=== PATIENT | female | born 1995 | race Caucasian/White ===

== ENCOUNTER 2018-08-03 22:35 | Emergency (ER) | payer SELFPAY ==
[~2018-08-03] VITALS: Ht 154.9 cm; Wt 68.2 kg
[2018-08-03 22:40] VITALS: BP 132/76; Ht 154.9 cm; Wt 68.2 kg
[2018-08-03 23:07] LABS: HCG URINE NEGATIVE (NEGATIVE)
== END 2018-08-03 23:50 | disposition home or self-care (01) ==
LOC: D.ER 22:35
PROVIDERS: Family Medicine
DX: N91.0 Primary amenorrhea (principal); F17.200 Nicotine dependence, unspecified, uncomplicated

== ENCOUNTER 2019-04-23 16:34 | Emergency (ER) | payer MEDICAID ==
[~2019-04-23] VITALS: Ht 154.9 cm; Wt 72.7 kg
[2019-04-23 16:36] VITALS: Ht 154.9 cm; Wt 72.7 kg
[2019-04-23 17:02] LABS: BASOPHILS 0.3 % (0-2); EOSINOPHILS 0.3 % (0-7); HEMATOCRIT 41.2 % (36.0-48.0); HEMOGLOBIN 13.7 g/dL (12-16); IMMATURE GRANULOCYTES 0.2 % (0-5); LYMPHOCYTES 8.4 % (15-50); MCH 31.4 pg (26.0-34.0); MCHC 33.3 g/dL (31.0-37.0); MCV 94.3 fL (80.0-100.0); MEAN PLATELET VOLUME 10.7 fL (7.4-10.4); MONOCYTES 5.7 % (2-11); NEUTROPHILS 85.1 % (40-80); PLATELET COUNT 234 10x3/uL (130-400); RBC 4.37 10x6/uL (4.00-5.40); RDW 12.4 % (11.5-14.5)
[2019-04-23 17:11] LABS: UDS - AMPHET NEGATIVE QUAL (NEGATIVE); UDS - BARB NEGATIVE QUAL (NEGATIVE); UDS - BENZO NEGATIVE QUAL (NEGATIVE); UDS - COCAINE NEGATIVE QUAL (NEGATIVE); UDS - OPIATE NEGATIVE QUAL (NEGATIVE); UDS - PCP NEGATIVE QUAL (NEGATIVE); UDS - THC NEGATIVE QUAL (NEGATIVE)
[2019-04-23 17:15] LABS: CALC OSMOLALITY 280 mosm/kg (275-300); CALCIUM 8.4 mg/dL (8.5-10.1); CARBON DIOXIDE 25.2 mmol/L (21.0-32.0); CHLORIDE - SERUM 106 mmol/L (98-107); CREATININE - SERUM 0.8 mg/dL (0.6-1.3); GLUCOSE 109 mg/dL (74-106); POTASSIUM - SERUM 3.7 mmol/L (3.5-5.1); SODIUM 141 mmol/L (136-145); UREA NITROGEN 11 mg/dL (7-18); eGFR NON AFRICAN AMERICAN > 90 mL/min (90-120)
[2019-04-23 17:19] LABS: ALKALINE PHOSPHATASE 61 U/L (46-116); ALT (SGPT) 11 U/L (10-68); BILIRUBIN - TOTAL 0.34 mg/dL (0.2-1.3); PROTEIN - SERUM 6.4 g/dL (6.4-8.2)
[2019-04-23 17:24] LABS: APTT 26.6 SECONDS (22.8-39.4); INR 1.02 (0.85-1.17); PROTIME 12.9 SECONDS (11.6-15.0)
[2019-04-23 17:27] LABS: APPEARANCE CLEAR (CLEAR); BILIRUBIN NEGATIVE (NEGATIVE); COLOR YELLOW (YELLOW); GLUCOSE NEGATIVE (NEGATIVE); KETONE LARGE mg/dL (NEGATIVE); NITRITE POSITIVE (NEGATIVE); PROTEIN TRACE mg/dL (NEGATIVE); SPECIFIC GRAVITY 1.025 (1.005-1.020); UROBILINOGEN NORMAL (NORMAL)
[2019-04-23 17:28] LABS: EPITHELIAL CELLS 0-5 /hpf (0-5); RED CELLS - URINE OCC /hpf (0-5); WHITE CELLS - URINE 0-5 /hpf (NEGATIVE)
[2019-04-23 17:29] LABS: BACTERIA MANY /hpf (NEGATIVE)
[2019-04-23 17:41] LABS: HCG URINE NEGATIVE (NEGATIVE)
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
--- NOTE | 2019-04-23 18:18 | NUR ---
DR. KIRBY NOTIFIED AND SITTER ORDERED. SITTER IN LINE OF SIGHT. 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 RESOURCES GIVEN TO PT AND SAFETY PLAN INTIATED.
[2019-04-24 00:35] VITALS: BP 122/74
== END 2019-04-24 00:41 ==
LOC: D.ER 16:34
PROVIDERS: Family Medicine
DX: R45.851 Suicidal ideations (principal); N39.0 Urinary tract infection, site not specified